=== PATIENT | female | born 1965 | race Caucasian/White ===

== ENCOUNTER → 2024-04-19 06:41 | Outpatient (REF) | payer OTHER, SELFPAY | LOC: HWWDC 06:41 | PROVIDERS: ATTENDING PHYSICIAN Obstetrics & Gynecology; FAMILY PHYSICIAN Family Medicine | DX: Z12.31 Encounter for screening mammogram for malignant neoplasm of breast (principal) | CPT/HCPCS: 77063; 77067 ==

== ENCOUNTER → 2024-09-10 07:25 | Outpatient (REF) | payer OTHER, SELFPAY | LOC: EMG 07:25 | PROVIDERS: ATTENDING PHYSICIAN Family Medicine | DX: G62.9 Polyneuropathy, unspecified (principal); R20.0 Anesthesia of skin | CPT/HCPCS: 95886; 95911 ==

== ENCOUNTER 2024-10-04 08:14 | Emergency (ER) | payer OTHER, SELFPAY ==
[2024-10-04 08:14] VITALS: BMI 23.2
[2024-10-04 08:15] VITALS: BP 102/79
--- NOTE | 2024-10-04 08:57 | ED.GENMED ---
History of Present Illness
General
Chief Complaint: Rectal Bleeding
Source: patient
Exam Limitations: none
Time Seen by Provider: 10/04/24 08:34
History of Present Illness
History of Present Illness:
58yoF with a history of Sjogren syndrome on Plaquenil presenting with her for evaluation of rectal bleeding. She has been feeling dizzy for the past several days which she describes as lightheadedness. The dizziness started to worsen last
night. She had a loose bowel movement this morning and noticed bright red blood in the toilet bowl. She reports seeing a large amount of blood with clots. She had a second bowel movement later in the morning which also had bleeding. Patient is
continuing to feel lightheaded at this time. She denies any syncope, chest pain, shortness of breath, abdominal pain, rectal pain. She has not taking any blood thinners. Last colonoscopy in 2013 showed non-bleeding internal hemorrhoids.
Past History
Past History
ED Past Medical History: None
ED Past Surgical History: None
Social History
Tobacco: Non-smoker
Alcohol: None
Drug: None
Personal:
Living: with family
Employment: Employed
Family History
Family History: Other (Noncontributory)
Phy Exam
General Physical Exam
General Presentation: well appearing and no apparent distress
General age: appears stated age
General Skin: warm and dry
General Habitus: normal
General Mental: alert
ENT Exam
ENT Exam: normocephalic
Pulmonary Exam
Pulmonary Exam: no respiratory distress
Gastrointestinal Exam
Gastrointestinal Exam: non tender, soft and non distended
Stool: other (Tiny non-thrombosed external hemorrhoid noted. Stool brown, hemoccult negative. No darius blood noted on NOLAN.)
Neurological Exam
Neurological Exam: alert
Leydi Coma Scale
Eye Opening: Spontaneous
Verbal Response: Oriented
Motor Response: Obeys Commands
GCS Total Score: 15
Skin Exam
Skin Exam: normal color and warm/dry
Psychiatric Exam
Psychiatric Exam: normal mood/affect
Course
Orders/Labs/Results
Orders:
Orders
10/04/24 09:14
Type+Screen Urgent
Complete Blood Count/With Diff Urgent
Comprehensive Metabolic Panel Urgent
PT/INR [Prothrombin Time] Urgent
PTT Urgent
10/04/24 09:14
10/04/24 09:14
Vital Signs
Initial and Last Documented VS:
Initial Vital Signs
Temp Pulse Resp BP Pulse Ox
98.1 F 98 18 102/79 97
10/04/24 08:15 10/04/24 08:15 10/04/24 08:15 10/04/24 08:15 10/04/24 08:15
Last Documented Vital Signs
Temp Pulse Resp BP Pulse Ox
98.1 F 75 14 114/64 99
10/04/24 08:15 10/04/24 10:15 10/04/24 10:15 10/04/24 10:00 10/04/24 10:15
MDM/Problems Addressed
Differential Diagnosis Includes:
58yoF here with rectal bleeding. Reports having 2 episodes of BRBPR with bowel movements this morning. BMs are loose, no diarrhea. Also c/o lightheadedness x several days. Colonoscopy in 2013 showed internal hemorrhoids. She is afebrile and
hemodynamically stable. She is well-appearing in no acute distress. Abdominal exam is benign. Rectal exam performed and stool is brown with negative Hemoccult testing. No darius blood noted. Differential diagnosis includes but is not limited to:
Hemorrhoidal bleeding, diverticular bleeding, anal fissure, AVM, anemia
Initial ED plan: Check CBC, CMP, coags, and type and screen.
*Critical Care Note
Total Time (30-74mins, 75-104mins- exclusive of procedures): Not Applicable
Update Note
Update Note:
Hemoglobin is 13.9. This is actually improved from 13.2 in March 2024. Remainder of labs unremarkable. On re-evaluation, her dizziness has completely resolved after receiving IV fluids. Vitals remained stable. No episodes of rectal bleeding
during ED stay. No indication for hospitalization at this time. She was advised to follow-up with gastroenterology. Strict ED return precautions discussed. Patient in agreement with plan and was discharged in stable condition.
ED Attending Note
-
Portions of this chart may have been created with voice recognition software.� Occasional wrong word or��sound alike� substitutions may have occurred due to the inherent limitations of voice recognition software.
Discharge Plan
Departure
Patient Disposition: Home (Routine Discharge)
Date of Disposition: 10/04/24
Time of Disposition: 10:21
Patient with high blood pressure during this ER visit?: No
Discharge Problem:
Rectal bleeding
Instructions: Bloody stools in adults
Prescriptions:
No Action
gabapentin 100 MG capsule
100 mg PO HSPRN PRN (Reason: nerve pain)
hydroxychloroquine 200 MG tablet
200 mg PO BID
zinc sulfate 50 mg zinc (220 mg) Tablet
50 mg PO DAILY
ascorbic acid (vitamin C) [Vitamin C] 500 mg Tablet
500 mg PO DAILY
vitamin E 268 mg (400 unit) Capsule
268 mg PO DAILY
cyclosporine [Restasis] 0.05 % Dropperette
1 drp BOTH EYES Q12H
cholecalciferol (vitamin D3) [Vitamin D3] 25 mcg (1,000 unit) Tablet
25 mcg PO DAILY
calcium carbonate-vitamin D3 [Calcium 500 + D] 500 mg-10 mcg (400 unit) Tablet
1 tab PO DAILY
Refresh Optive 0.5-0.9 % Drops
1 drp BOTH EYES TID
Referrals:
Verónica Talavera MD [Family Provider] -
Luiza Muniz MD [Active] -
Activity Restrictions/Additional Instructions:
Please call today to schedule a follow-up appointment with gastroenterology. Return to the ER with any worsening symptoms, passing out, shortness of breath, excessive fatigue.
Interventions
Interventions:
*Risk Screen - Suicide Last Done: 10/04/24 08:15
*General Assessment Last Done: 10/04/24 08:15
*Neglect/Abuse Screening Last Done: 10/04/24 08:15
ED- Fall Risk Assessment Last Done: 10/04/24 09:15
*Nursing Disposition Last Done: 10/04/24 10:30
DN-[facility] Assessment Last Done: 10/04/24 09:15
ED- Cardiac Assessment Last Done: 10/04/24 09:15
ED- Pulmonary Assessment Last Done: 10/04/24 09:15
Discharge Date and Time
Discharge Date/Time: 10/04/24 10:30
Print Language: [id number]
[2024-10-04 09:25] VITALS: BP 119/79
[2024-10-04 09:35] LABS: % Basophils 0.4 % (0-2); % Immature Granulocytes 0.2 % (0-0.5); % Lymphocytes 23.6 % (20.5-51.1); % Monocytes 8.1 % (1.7-9.3); % Neutrophils 66.7 % (42.2-75.2); Absolute Eosinophils 0.1 10^3/uL (0-0.7); Absolute Lymphocytes 1.2 10^3/uL (1.2-3.4); Absolute Monocytes 0.4 10^3/uL (0.1-0.6); Absolute Neutrophils 3.4 10^3/uL (1.4-6.5); Hematocrit 40.4 % (37.0-47.0); Hemoglobin 13.9 g/dL (12.0-16.0); Mean Corp Hgb Conc. 34.4 g/dL (33.0-37.0); Mean Platelet Volume 10.3 fL (7.4-10.4); Nucleated Red Blood Cells % 0 %; Platelet Count 169 10^3/uL (130-400); Red Blood Cell Count 4.49 10^6/uL (4.20-5.40); Red Cell Dist. Width 11.9 % (11.5-14.5); White Blood Cell Count 5.2 10^3/uL (4.8-10.8)
[2024-10-04 09:47] LABS: ALT (SGPT) 26 U/L (0-35); AST (SGOT) 35 U/L (14-36); Albumin 4.4 g/dl (3.5-5.0); Alkaline Phosphatase 65 U/L (38-126); Blood Urea Nitrogen 17 mg/dl (7-17); Calcium 9.1 mg/dl (8.4-10.2); Carbon Dioxide 28 mmol/L (22-30); Chloride 105 mmol/L (98-107); Estimated Creatinine Clearance 59 ml/min; Glucose 83 mg/dl (70-99); Sodium 140 mmol/L (135-145); Total Bilirubin 0.5 mg/dl (0.2-1.3); Total Protein 6.6 g/dl (6.3-8.2); eGFR > 60.00
[2024-10-04 10:00] VITALS: BP 114/64
[2024-10-04 10:16] LABS: INR 0.92; PT 12.8 Sec (11.4-14.6)
[2024-10-04 10:17] LABS: APTT 30.7 Sec (23.4-35.0)
== END 2024-10-04 10:30 | disposition home or self-care (01) ==
LOC: EMR 08:14
PROVIDERS: Physician Assistant; EMERGENCY PHYSICIAN Emergency Medicine; FAMILY PHYSICIAN Family Medicine
DX: K62.5 Hemorrhage of anus and rectum (principal); M35.00 Sjogren syndrome, unspecified; Z79.899 Other long term (current) drug therapy
CPT/HCPCS: 99283; 80053; 85025; 85610; 85730; 86850; 86900; 86901

== ENCOUNTER → 2025-01-16 13:33 | Outpatient (REF) | payer OTHER, SELFPAY | LOC: HWRAD 13:33 | PROVIDERS: ATTENDING PHYSICIAN Internal Medicine | DX: R06.02 Shortness of breath (principal) | CPT/HCPCS: 71046 ==

== ENCOUNTER → 2025-03-19 12:57 | Outpatient (REF) | payer OTHER, SELFPAY | LOC: HWRAD 12:57 | PROVIDERS: ATTENDING PHYSICIAN Internal Medicine Rheumatology; FAMILY PHYSICIAN Family Medicine | DX: R06.02 Shortness of breath (principal) | CPT/HCPCS: 71250 ==

== ENCOUNTER → 2025-04-04 08:46 | Outpatient (REF) | payer OTHER, SELFPAY | LOC: RSP 08:46 | PROVIDERS: ATTENDING PHYSICIAN Internal Medicine Rheumatology; FAMILY PHYSICIAN Family Medicine | DX: R06.02 Shortness of breath (principal) | CPT/HCPCS: 88738; 94010; 94727; 94729 ==

== ENCOUNTER → 2025-05-09 08:10 | Outpatient (REF) | payer OTHER, SELFPAY | LOC: RCS 08:10 | PROVIDERS: ATTENDING PHYSICIAN Internal Medicine Rheumatology; FAMILY PHYSICIAN Family Medicine | DX: M35.01 Sjogren syndrome with keratoconjunctivitis (principal); M54.6 Pain in thoracic spine | CPT/HCPCS: 72072; 93306 ==